=== PATIENT | female | born 1945 ===

== ENCOUNTER 2022-03-26 11:22 | Day surgery (SDC) | payer OTHER ==
[~2022-03-26] VITALS: Ht 149.9 cm; Wt 56.7 kg
[~2022-03-26 11:22] MED LIST: LANTUS; PROZAC40 MG; SEROQUEL50 MG; SYNTHROID88 MCG; TOPROL XL25 M1; ZESTRIL5 MG
== END 2022-03-26 17:45 | disposition home or self-care (01) ==
LOC: CIR.AMB 11:22
PROVIDERS: ATTEND Orthopaedic Surgery
DX: S52.032A Displaced fracture of olecranon process with intraarticular extension of left ulna, initial encounter for closed fracture (principal); S53.32XA Traumatic rupture of left ulnar collateral ligament, initial encounter; Z20.822 Contact with and (suspected) exposure to COVID-19; Z88.8 Allergy status to other drugs, medicaments and biological substances; I10 Essential (primary) hypertension; Z95.0 Presence of cardiac pacemaker; I25.2 Old myocardial infarction; N18.9 Chronic kidney disease, unspecified
CPT/HCPCS: 24685; 24343; 24666; L8699